=== PATIENT | male | born 1990 | race Caucasian/White ===

== ENCOUNTER 2019-11-04 18:38 | Emergency (ER) | payer OTHER, SELFPAY ==
[2019-11-04 18:40] VITALS: BP 149/89; PULSE 102; RESP 18; TEMP 36.3; O2SAT 98
--- NOTE | 2019-11-04 19:11 | ED.GENADULT ---
HPI - General Adult General Chief complaint: Wound/Laceration Stated complaint: laceration right hand Time Seen by Provider: 11/04/19 19:03 Source: patient Mode of arrival: ambulatory Limitations: no limitations History of Present Illness HPI narrative: Patient is a 29-year-old male who presents to emergency department for laceration of the hand patient cut it with a sharp edge at the base of the index palmar surface just prior to arrival. Patient denies other injuries or complaints radicular symptoms or paresthesias presents with family in no distress. Patient is unsure as to tetanus status Related Data Allergies Allergy/AdvReac Type Severity Reaction Status Date / Time No Known Allergies Allergy Unknown Verified 11/04/19 18:50 Review of Systems Review of Systems: All systems reviewed & are unremarkable except as noted in HPI and below PMFSH Social History Social History (Updated 11/04/19 @ 19:12 by Yariel Kendrick PA-C) Smoking status: Never smoker Exam Narrative: Exam Narrative: GENERAL: Well-appearing, well-nourished, and in no acute distress. HEAD: Normocephalic, atraumatic. EYES: PERRLA and EOMI. ENT: Nares clear, no rhinorrhea or epistaxis. Mucous membranes moist. EXTREMITIES: Normal range of motion. No edema. 1 cm superficial linear laceration of the base of the right index finger SKIN: Warm, dry, no rash. Palmar surface NEURO: No focal deficits. Alert and oriented x3. Neurovascularly intact PSYCH: Normal mood and affect. Course Course Emergency Course: Patient in the room in no distress aware of case findings treatment plan and diagnosis Vital Signs Vital signs: Vital Signs Temperature 97.4 F L 11/04/19 18:40 Pulse Rate 102 H 11/04/19 18:40 Respiratory Rate 18 11/04/19 18:40 Blood Pressure 149/89 H 11/04/19 18:40 Pulse Oximetry 98 11/04/19 18:40 Temperature 97.4 F L 11/04/19 18:40 Pulse Rate 102 H 11/04/19 18:40 Respiratory Rate 18 11/04/19 18:40 Blood Pressure 149/89 H 11/04/19 18:40 Pulse Oximetry 98 11/04/19 18:40 Procedures Laceration Laceration 1: Date: 11/04/19 Time: 19:13 Site: upper extremity Side (If applicable): right Size (cm): 1 Description: linear Depth: simple, single layer Pre-repair: wound explored, irrigated and irrigated extensively ====== Skin Level ====== Skin layer closed with: jordin Number of sutures: 2 ====== Subcutaneous Layer ====== ====== Muscle Layer ====== ====== Tendon Layer ====== Medical Decision Making MDM Narrative Medical decision making narrative: Patients injury or pain is consistent with musculoskeletal etiology. No signs of neurological or vascular compromise on exam. Compartments and tisues are soft without signs of compartment syndrome. Pain is felt appropriate for further evaluation on an outpatient basis. Vital Signs Vital Signs: Vital Signs Temperature 97.4 F L 11/04/19 18:40 Pulse Rate 102 H 11/04/19 18:40 Respiratory Rate 18 11/04/19 18:40 Blood Pressure 149/89 H 11/04/19 18:40 Pulse Oximetry 98 11/04/19 18:40 Temperature 97.4 F L 11/04/19 18:40 Pulse Rate 102 H 11/04/19 18:40 Respiratory Rate 18 11/04/19 18:40 Blood Pressure 149/89 H 11/04/19 18:40 Pulse Oximetry 98 11/04/19 18:40 Discharge Plan Discharge Clinical Impression: Laceration Patient Disposition: Home, Self-Care Condition: Stable Instructions: Antibiotic Form, Laceration (ED) Additional Instructions: Keep wound clean and dry. Do not soak, take baths, or swim until wound is completely healed. If any signs of infection such as redness, swelling, increasing pain, drainage of purulent discharge, streaks up your extremity develop, seek medical attention immediately. Followup with your primary care provider in [7] days for suture removal. [] Follow-up/Referrals: Luis,MD Ciaran [Primary Care Provider
[2019-11-04] MEDS: TETANUS,DIPHTHERIA,AC PERTUSSIS ADULT (0.5 ML) BOOSTRIX IM (19:34)
== END 2019-11-04 19:35 | disposition home or self-care (01) ==
PROVIDERS: Emergency Provider Emergency Medicine; PCP Family Medicine
DX: S61.411A Laceration without foreign body of right hand, initial encounter (principal); Z23 Encounter for immunization; W26.9XXA Contact with unspecified sharp object(s), initial encounter
CPT/HCPCS: 12001; 90471; 90715; 99282

== ENCOUNTER 2020-09-04 23:43 | Emergency (ER) | payer OTHER, SELFPAY ==
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
[2020-09-04 23:45] VITALS: BP 133/89; PULSE 109; RESP 18; O2SAT 98
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
--- NOTE | 2020-09-05 00:31 | PC.NURSE ---
Pt. going to CT
[2020-09-05 00:47] VITALS: O2SAT 97
[2020-09-05 01:00] VITALS: BP 135/102; PULSE 108; RESP 20; O2SAT 98
[2020-09-05 01:57] VITALS: BP 148/92
== END 2020-09-05 02:01 | disposition home or self-care (01) ==
PROVIDERS: Emergency Provider Emergency Medicine; PCP Family Medicine
DX: S01.112A Laceration without foreign body of left eyelid and periocular area, initial encounter (principal); S01.01XA Laceration without foreign body of scalp, initial encounter; X99.8XXA Assault by other sharp object, initial encounter
CPT/HCPCS: 12002; 12011; 70450; 99284

== ENCOUNTER 2021-11-29 10:50 | Emergency (ER) | payer OTHER, SELFPAY ==
--- NOTE | 2021-11-29 10:53 | ED.LOWEXIN ---
HPI - Extremity Injury (Lower) General Chief Complaint: Extremity Injury, Lower Stated Complaint: Rt Foot Pain Time Seen by Provider: 11/29/21 10:52 Source: patient Mode of arrival: ambulatory Limitations: no limitations History of Present Illness HPI Narrative: Mr. Law is a 31-year-old male patient presenting to the clinic today with complaints of right foot pain/injury. He reports he stepped on some glass Monday night and is concerned that there may be a retained piece in the heel of his right foot. His tetanus status is unknown. He would like to have his tetanus updated today in the clinic. Related Data Home Medications Medication Instructions Recorded Confirmed citalopram 40 mg tablet 1 tablet PO DAILY 11/29/21 11/29/21 lamotrigine 100 mg tablet 1 tablet PO DAILY 11/29/21 11/29/21 lisinopril 10 mg tablet 1 tablet PO DAILY 11/29/21 11/29/21 mirtazapine 15 mg tablet 1 tablet PO DAILY 11/29/21 11/29/21 Allergies Allergy/AdvReac Type Severity Reaction Status Date / Time No Known Allergies Allergy Unknown Verified 11/29/21 10:53 Review of Systems Review of Systems: Pertinent positives per HPI. Patient denies any fever, chills, rash, headache, visual changes, dizziness, cough, runny nose, sore throat, shortness of breath, chest pain, palpitations, nausea, vomiting, diarrhea, constipation, abdominal pain, or any urinary issues. PMFSH Social History Social History Smoking status: Never smoker Alcohol intake: current Gender identity (if verbalized by the patient): Male Comments At the time of my signature, I reviewed and agree with the nursing past medical, surgical, social, and family history. There is no relevant family history pertinent to the patient complaint. Exam Narrative: General: Well-developed, well nourished, in no apparent distress Head: Normocephalic, atraumatic. Cardio: Regular rate and rhythm, s1 and s2 normal, no murmur appreciated. Resp: Clear to auscultation bilaterally, no rhonchi, rales, wheezing or rubs. Integumentary: [place], warm, and dry, intact without lesion, no rashes. Has a small puncture wound to the right lateral plantar heel with possible retained sliver of glass. Course Course Emergency Course: Portions of this record may have been created with voice recognition software. Level of Care: Express Care Visit Vital Signs Vital signs: Vital signs reviewed Procedures Other Procedure Procedure 1: Other Procedure: Verbal consent obtained for foreign body removal of the right heel. Risk and benefits explained and patient voiced understanding. Area was cleansed with technic care and a 25-gauge needle was used to instill 1 mL of lidocaine with epi into the puncture wound edges. A 1 cm incision was made and a sliver of glass was removed from the wound. Wound was explored and there was no other foreign body palpable in the wound bed, area was recleansed with technic care, triple antibiotic ointment applied, and dressed with 4 x 4's and with Coban. Patient tolerated procedure well. Tetanus shot was given in the clinic. MDM - Extremity Injury (Lower) MDM Narrative Medical decision making narrative: At the time of visit patient is resting comfortably on the exam table. He had a sliver of glass in the right heel that was removed surgically in the clinic. Supportive measures were discussed with the patient he voiced understanding of discharge instructions and agrees to the treatment plan Differential Diagnosis Differential diagnosis: Likely puncture wound of foot and other (Retained foreign body in the right heel) Discharge Plan Discharge Clinical Impression: Foreign body in foot, Puncture wound Patient Disposition: Home, Self-Care Condition: Stable Instructions: Antibiotic Form, Soft Tissue Foreign Body (ED), Puncture Wound (ED) Additional Instructions: Tetanus shot given in the clinic today
[2021-11-29 11:01] VITALS: BP 147/89; PULSE 88; RESP 18; TEMP 36.8; O2SAT 100
[2021-11-29] MEDS: TETANUS,DIPHTHERIA,AC PERTUSSIS ADULT (0.5 ML) BOOSTRIX IM (11:14)
== END 2021-11-29 11:38 | disposition home or self-care (01) ==
PROVIDERS: Emergency Provider Nurse Practitioner Family
DX: S91.341A Puncture wound with foreign body, right foot, initial encounter (principal); W25.XXXA Contact with sharp glass, initial encounter; Z23 Encounter for immunization; I10 Essential (primary) hypertension; A31.9 Mycobacterial infection, unspecified
CPT/HCPCS: 10120; 90471; 90715; 99212; G0463

== ENCOUNTER 2021-12-18 10:07 | Emergency (ER) | payer OTHER, SELFPAY ==
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
[2021-12-18 10:10] VITALS: BP 147/82; PULSE 110; RESP 16; TEMP 36.4; O2SAT 100
--- NOTE | 2021-12-18 11:34 | PC.NURSE ---
patient left without being seen.
== END 2021-12-18 11:37 | disposition left against medical advice (07) ==
LOC: ANHED 11:18
PROVIDERS: Emergency Provider Emergency Medicine; PCP Nurse Practitioner
DX: M25.572 Pain in left ankle and joints of left foot (principal)
CPT/HCPCS: 73610; 73630; 99199

== ENCOUNTER 2021-12-18 13:32 | Emergency (ER) | payer OTHER, SELFPAY ==
--- NOTE | ~2021-12-18 | XR_ITS ---
EXAMINATION: XR chest 1V Exam Date/Time: 12/18/2021 15:08 CDT HISTORY: Eval for pneumothorax Comparison: None available. RESULT: Lines, tubes, and devices: None. Lungs and pleura: Clear. Cardiomediastinal silhouette: Stable cardiomediastinal silhouette. Other: No acute osseous or upper abdominal finding. IMPRESSION: No acute cardiopulmonary process. Reviewed, dictated and finalized at [facility].
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
--- NOTE | ~2021-12-18 | CT_ITS ---
EXAMINATION: CT brain wo con DATE: 12/18/2021 15:26 INDICATION: Eval for hemorrhage . TECHNIQUE: Computed tomography (CT) of the head was performed without intravenous contrast. The mA wa s adjusted according to patient size. Iterative reconstruction technique was employed. The dose-lengt h product was 605.33 mGy-cm. COMPARISON: 09/05/2020. FINDINGS: No acute intracranial hemorrhage or extra-axial fluid collection. No hydrocephalus, mass, or herniation. No acute ischemic infarct. Unremarkable dural venous sinus attenuation. No acute osseous abnormality. Mild mucosal thickening in the right frontal and right ethmoid air cells, otherwise the aerated space s are clear. IMPRESSION: No acute intracranial process. Reviewed, dictated and finalized at [facility].
--- NOTE | ~2021-12-18 | CT_ITS ---
EXAMINATION: CT facial bones wo con DATE: 12/18/2021 15:27 INDICATION: Eval for fracture . TECHNIQUE: Computed tomography (CT) of the facial bones and maxillofacial region was performed withou t intravenous contrast. Automated exposure control and iterative reconstruction technique were employ ed. The dose-length product was 307.42 mGy-cm. COMPARISON: None. FINDINGS: Soft Tissues: Soft tissue swelling over the right cheek. Facial bones: Nasal bone asymmetry, with slight displacement of the right nasal bone. Otherwise no a cute fracture. No lytic or blastic process. Eyes: The globes are intact. The soft tissue planes of the orbits are maintained. Paranasal Sinuses: Mild mucosal thickening in the right frontal, right maxillary, and ethmoid air ce lls. Retention cyst or polyp in the right maxillary sinus. Foreign Bodies: No radiopaque foreign bodies. Other Findings: None. IMPRESSION: Minimally displaced acute versus chronic right nasal bone fracture. No other acute osseous finding in the face. Reviewed, dictated and finalized at [facility]. IMPRESSION: Minimally displaced acute versus chronic right nasal bone fracture. No other ac rico osseous finding in the face.
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
[2021-12-18 13:40] VITALS: BP 155/100; PULSE 91; RESP 16; TEMP 36.8; O2SAT 96
--- NOTE | 2021-12-18 13:45 | ECG_ITS ---
Measurements Intervals [place] Rate: 92 P: -1 [place]: 161 QRS: 52 QRSD: 90 T: 50 QT: 320 QTc: 398 Interpretive Statements SINUS RHYTHM NORMAL ECG Electronically Signed On 12-18-2021 15:29:07 CDT by Janes Geller D.O.
--- NOTE | 2021-12-18 15:15 | ED.GENADULT ---
HPI - General Adult General Chief complaint: Unspecified Stated complaint: CP Time Seen by Provider: 12/18/21 14:47 Related Data Home Medications Medication Instructions Recorded Confirmed citalopram 40 mg tablet 1 tablet PO DAILY 11/29/21 11/29/21 lamotrigine 100 mg tablet 1 tablet PO DAILY 11/29/21 11/29/21 lisinopril 10 mg tablet 1 tablet PO DAILY 11/29/21 11/29/21 mirtazapine 15 mg tablet 1 tablet PO DAILY 11/29/21 11/29/21 Allergies Allergy/AdvReac Type Severity Reaction Status Date / Time No Known Allergies Allergy Unknown Verified 12/18/21 11:08 [facility] Social History Social History Smoking status: Never smoker Alcohol intake: current Gender identity (if verbalized by the patient): Male Course Vital Signs Vital signs: Vital Signs Temperature 98.2 F 12/18/21 13:40 Pulse Rate 91 12/18/21 13:40 Respiratory Rate 16 12/18/21 13:40 Blood Pressure 155/100 H 12/18/21 13:40 Pulse Oximetry 96 12/18/21 13:40 Temperature 98.2 F 12/18/21 13:40 Pulse Rate 91 12/18/21 13:40 Respiratory Rate 16 12/18/21 13:40 Blood Pressure 155/100 H 12/18/21 13:40 Pulse Oximetry 96 12/18/21 13:40 Medical Decision Making Vital Signs Vital Signs: Vital Signs Temperature 98.2 F 12/18/21 13:40 Pulse Rate 91 12/18/21 13:40 Respiratory Rate 16 12/18/21 13:40 Blood Pressure 155/100 H 12/18/21 13:40 Pulse Oximetry 96 12/18/21 13:40 Temperature 98.2 F 12/18/21 13:40 Pulse Rate 91 12/18/21 13:40 Respiratory Rate 16 12/18/21 13:40 Blood Pressure 155/100 H 12/18/21 13:40 Pulse Oximetry 96 12/18/21 13:40 Discharge Plan Discharge Prescriptions: No Action citalopram 40 mg tablet 1 tablet PO DAILY lisinopril 10 mg tablet 1 tablet PO DAILY mirtazapine 15 mg tablet 1 tablet PO DAILY lamotrigine 100 mg tablet 1 tablet PO DAILY Follow-up/Referrals: Gopi,Nnamdi Proctor, [employer] [Primary Care Provider] -
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
[2021-12-18] MEDS: ACETAMINOPHEN 500 MG TABLET 1000 MG PO (15:54)
--- NOTE | 2021-12-18 17:47 | PC.NURSE ---
Pt walked out before receiving discharge instructions.
== END 2021-12-18 17:50 | disposition home or self-care (01) ==
PROVIDERS: Emergency Provider Preventive Medicine Aerospace Medicine; PCP Nurse Practitioner
DX: S92.335A Nondisplaced fracture of third metatarsal bone, left foot, initial encounter for closed fracture (principal); S02.2XXA Fracture of nasal bones, initial encounter for closed fracture; S05.12XA Contusion of eyeball and orbital tissues, left eye, initial encounter; S49.92XA Unspecified injury of left shoulder and upper arm, initial encounter; Y04.0XXA Assault by unarmed brawl or fight, initial encounter
CPT/HCPCS: 70450; 70486; 71045; 73030; 73070; 73610; 73630; 93005; 99284; A9270

== ENCOUNTER 2022-02-17 20:21 | Emergency (ER) | payer OTHER, SELFPAY ==
--- NOTE | ~2022-02-17 | CT_ITS ---
EXAMINATION: CT cervical spine wo con DATE: 02/17/2022 21:00 INDICATION: Neck injury. TECHNIQUE: Computed tomography (CT) of the cervical spine was performed without intravenous contrast. Automated exposure control and iterative reconstruction technique were employed. The dose-length pro duct was 509.77 mGy-cm. COMPARISON: None FINDINGS: There is 8 degrees levocurvature of cervical spine. There is hypolordosis of cervical spine . Vertebral body heights and intervertebral disc heights are normal. The following disc levels are sp ecifically discussed: C2-C3: There is mild bilateral uncovertebral joint osteoarthritis. There is mild right facet joint os teoarthritis. There is no neural foraminal stenosis. There is no central canal stenosis. C3-C4: There is moderate bilateral uncovertebral joint osteoarthritis. There is no facet joint osteoa rthritis. There is mild bilateral neural foraminal stenosis. There is mild central canal stenosis. C4-C5: There is mild bilateral uncovertebral joint osteoarthritis. There is mild bilateral facet join t osteoarthritis. There is no neural foraminal stenosis. There is no central canal stenosis. C5-C6: There is mild bilateral uncovertebral joint osteoarthritis. There is no facet joint osteoarthr itis. There is no neural foraminal stenosis. There is no central canal stenosis. C6-C7: There is mild left uncovertebral joint osteoarthritis. There is no facet joint osteoarthritis. There is no neural foraminal stenosis. There is mild central canal stenosis. C7-T1: There is no uncovertebral joint osteoarthritis. There is mild bilateral facet joint osteoarthr itis. There is mild bilateral neural foraminal stenosis. There is no central canal stenosis. IMPRESSION: 1. No fracture. 2. Mild cervical spondylosis. Reviewed, dictated and finalized at location A.
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
[2022-02-17 20:25] VITALS: BP 115/73; PULSE 105; RESP 24; TEMP 36.8; O2SAT 99
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
== END 2022-02-17 21:35 | disposition home or self-care (01) ==
PROVIDERS: Emergency Provider Emergency Medicine; PCP Nurse Practitioner
DX: S01.01XA Laceration without foreign body of scalp, initial encounter (principal); Y04.2XXA Assault by strike against or bumped into by another person, initial encounter; F17.200 Nicotine dependence, unspecified, uncomplicated; M47.812 Spondylosis without myelopathy or radiculopathy, cervical region
CPT/HCPCS: 12002; 70450; 72125; 99284

== ENCOUNTER 2022-08-31 14:48 | Emergency (ER) | payer OTHER, SELFPAY ==
--- NOTE | 2022-08-31 14:51 | ED.BACK ---
HPI - Back Pain/Injury General Chief Complaint: Back Pain/Injury Stated Complaint: Lower Back Pain Time Seen by Provider: 08/31/22 15:30 Source: patient and RN notes reviewed Mode of arrival: ambulatory Limitations: no limitations History of Present Illness HPI Narrative: 32-year-old male presents with concern for back pain. He reports history of back pain and sciatica. Reports several years ago he had surgery on L1 in to. Reports he is currently seeing his primary care for back pain and has been ordered physical therapy but he cannot get in until September 12. Reports he has been taking muscle relaxers and ibuprofen. Reports he called his doctor today and his doctor my call him in gabapentin. He denies loss of bowel or bladder function, perianal anesthesia, abdominal pain, fever. Reports the pain radiates down his left leg. MD elicited complaint: back pain Related Data Home Medications Medication Instructions Recorded Confirmed citalopram 40 mg tablet 1 tablet PO DAILY 11/29/21 08/31/22 lamotrigine 100 mg tablet 1 tablet PO DAILY 11/29/21 08/31/22 lisinopril 10 mg tablet 1 tablet PO DAILY 11/29/21 08/31/22 mirtazapine 15 mg tablet 1 tablet PO DAILY 11/29/21 08/31/22 aripiprazole 5 mg tablet 5 mg PO DAILY 08/31/22 08/31/22 hydroxyzine HCl 25 mg tablet 25 mg PO DAILY 08/31/22 08/31/22 Allergies Allergy/AdvReac Type Severity Reaction Status Date / Time No Known Allergies Allergy Unknown Verified 08/31/22 15:10 Review of Systems Review of Systems: CONSTITUTIONAL: Denies malaise, chills, sweats, or fever. CARDIOVASCULAR: Denies chest pain, palpitations, or edema. RESPIRATORY: Denies cough or dyspnea. GASTROINTESTINAL: Denies abdominal pain, nausea, vomiting, diarrhea, loss of bowel function GENITOURINARY: Denies dysuria, hematuria, frequency, loss of bladder function. SKIN: Denies rash or itching. MUSCULOSKELETAL: Reports left low back pain radiating down left leg NEUROLOGIC: Denies numbness, weakness, or headache. All systems reviewed & are unremarkable except as noted in HPI and below PMFSH Past Medical History Medical History (Updated 08/31/22 @ 15:42 by Hina Yost NP) Healthy adult male Surgical History Surgical History (Updated 02/17/22 @ 21:02 by Ishaan Chau MD) No pertinent past surgical history Social History Social History (Updated 02/17/22 @ 21:03 by Ishaan Chau MD) Smoking status: Current every day smoker Alcohol intake: current Gender identity (if verbalized by the patient): Male Comments At time of signature, agree with nursing past medical, surgical, social and family history. There is no relevant family history pertinent to the presenting complaint Exam Narrative: GENERAL: Well-appearing, well-nourished, and in no acute distress. HEAD: Normocephalic, atraumatic. EYES: PERRLA and EOMI. NECK: Supple. No lymphadenopathy. CHEST: Clear to auscultation. No respiratory distress. HEART: Regular rate and rhythm. Distal pulses palpable and equal, cap refill <3 seconds ABDOMEN: Soft, nontender, nondistended, normal active bowel sounds, no palpable or pulsatile masses. No CVA tenderness MUSCULOSKELETAL: Normal range of motion and strength in all extremities; 5/5 strength with hip flexion and extension, dorsiflexion and extension, knee flexion and extension, plantar flexion and extension. Normal sensation in dermatomal distributions with sensitivity to light touch and pain. No midline back tenderness to palpation. No paraspinal tenderness. Transfers from sitting to standing. SKIN: Warm, dry, no rash. No ecchymosis, erythema, open wounds to back. NEURO: No focal deficits. Alert and oriented x3. Reflexes intact. Normal gait. PSYCH: Normal mood and affect Course Course Emergency Course: Patient is aware of diagnosis, understands and agrees to treatment plan. Anticipatory guidance given. Patient agrees to follow-up as directed and is aware of reasons to seek care at the [facility]
[2022-08-31 14:57] VITALS: BP 133/91; PULSE 120; RESP 18; TEMP 36.4; O2SAT 99
== END 2022-08-31 15:44 | disposition home or self-care (01) ==
PROVIDERS: Emergency Provider Nurse Practitioner; PCP Nurse Practitioner
DX: M54.50 Low back pain, unspecified (principal); F17.200 Nicotine dependence, unspecified, uncomplicated; I10 Essential (primary) hypertension; F31.9 Bipolar disorder, unspecified
CPT/HCPCS: 99213; G0463

== ENCOUNTER 2022-09-12 15:15 | Outpatient (RCR) | payer OTHER, SELFPAY ==
--- NOTE | 2022-08-18 08:14 | PCPTNOTE ---
Patient did not show up for scheduled evaluation this date.
--- NOTE | 2022-09-13 15:56 | PTOPEVAL1 ---
Assessment and note entered by Emile Thao, PT Evaluation Information Assessment Status Evaluation Diagnosis Lumbago with sciatica L side. Subjective Information Patient reports he has been dealing with back pain for awhile requiring surgery about 5 years ago which really helped, but then he was lifting an object and think he messed up his back about a year ago. He has days where he cannot do anything with the pain in the back and going down the LLE to the calf and into the testicle. Biggest issues are sleeping, walking, stairs, and bending over to put on shoes and socks. States he LLE gave out on him once causing a fall. Assessment PT Clinical Summary Misael is a 32 year old male coming into the clinic with a diagnosis of chronic back surgery. He has poor low back and core strength along with tightness in the quads, hamstrings, piriformis, and calfs. Physical therapy will work on stretching and strengthening to take stress off the low back and spine along with modalities and manual therapy for pain control. Plan of Care Interventions Electrical Stimulation,Gait Training,Hot Pack/Cold Pack,Manual Therapy,Neuro Re-education,Patient/ Caregiver Education,Therapeutic Activities, Therapeutic Exercise,Ultrasound Other Interventions taping, cupping, IASTM PT Services Indicated Yes Treatment Frequency and 1-2x/wk for 4 weeks Duration These treatments will address the objective and functional deficits as defined above. The patient will be advanced safely and appropriately in order for the patient to progress towards his/her prior level of function. Additional exercises will be introduced and as well as a comprehensive home exercise program upon discharge, if needed, ?to ensure carryover of functional gains achieved in the clinic. This treatment plan has been reviewed and agreement upon by the patient.
--- NOTE | 2022-09-21 10:53 | PCPTNOTE ---
Patient did not show up for scheduled appointment this date. Called and had to leave a message.
--- NOTE | 2022-09-23 14:05 | PCPTNOTE ---
Pt. was a no show this date. Pt. had no showed on 09/21 and rescheduled for today.
--- NOTE | 2022-09-29 14:34 | PCPTNOTE ---
Patient did not show up for scheduled appointment this date. Called and had to leave a message. Explained that since he has had 3 no show, he was being discharged from therapy at this time.
--- NOTE | 2022-09-29 15:13 | PCPTNOTE ---
Admitting Provider: Attending Provider: Nnamdi Nguyễn, [employer] Patient:Ashwin Law Date of :1990 Patient has not returned for any further treatments since 09/12/2022, therefore he will be discharged at this time. Patient?s initial visit was on 09/12/2022 and he had a total of 1___ visits. with three no shows or cancelations before the evaluation and 3 no shows after the evaluation The goals have been not met. Thank you for referring this patient to [facility]. Please review, sign, date and return this discharge summary [facility]. I have been updated about the patient's current status and I agree with discharge from the above service at this time. Referring Physician Date
== END 2022-09-30 12:22 | disposition home or self-care (01) ==
LOC: ANHPT 15:15
PROVIDERS: PCP Nurse Practitioner; Visit Provider Nurse Practitioner
DX: M54.42 Lumbago with sciatica, left side (principal)
CPT/HCPCS: 97110; 97161; 99199

== ENCOUNTER 2025-02-18 22:38 | Emergency (ER) | payer OTHER, SELFPAY ==
[2025-02-18 22:43] VITALS: BP 126/82; PULSE 108; RESP 16; TEMP 37; O2SAT 100
--- NOTE | 2025-02-18 22:45 | ECG_ITS ---
Test Date: 2025-02-18 22:50:45 Measurements Intervals [place] Rate: 89 P: 1 AR: 152 QRS: 43 QRSD: 91 T: 57 QT: 345 QTc: 421 Interpretive Statements SINUS RHYTHM NORMAL ECG No previous ECG available for comparison Electronically Signed On 02-19-2025 07:40:27 CDT by Kalen Ma M.D.
== END 2025-02-18 23:57 | disposition left against medical advice (07) ==
PROVIDERS: Emergency Provider Student in an Organized Health Care Education/Training Program; PCP Nurse Practitioner
DX: R07.9 Chest pain, unspecified (principal)
CPT/HCPCS: 93005; 99199